=== PATIENT | male | born 1960 | race Caucasian/White ===

== ENCOUNTER 2021-02-26 13:08 | Emergency (ER) | payer OTHER, SELFPAY ==
[2021-02-26 13:29] VITALS: BP 130/67; PULSE 80; RESP 18; TEMP 36.5; O2SAT 100
--- NOTE | 2021-02-26 17:46 | ED.SKABFB ---
HPI - Skin/Abscess/Foreign Bdy General Chief complaint: Skin/Abscess/Foreign Body Stated complaint: Eye swollen shut. Not sure why Time Seen by Provider: 02/26/21 17:46 Source: patient Mode of arrival: Ambulatory Exam Initial Vital Signs Initial Vital Signs: Vital Signs Temperature 97.7 F 02/26/21 13:29 Pulse Rate 80 02/26/21 13:29 Respiratory Rate 18 02/26/21 13:29 Blood Pressure 130/67 02/26/21 13:29 Pulse Oximetry 100 02/26/21 13:29 Course Orders Ordered: Discontinued Medications Diphtheria/Tetanus/Acell Pertussis (Tet,Diph,Pertuss(Acell),Vac/Pf 0.5 Ml Syringe) 0.5 ml IM .ONCE ONE Stop: 02/26/21 13:40 Vital Signs Vital signs: Vital Signs - 8 hr 02/26/21 13:29 Temperature 97.7 F Pulse Rate 80 Respiratory Rate 18 Blood Pressure 130/67 Pulse Oximetry 100
[2021-02-26] MEDS: TET,DIPH,PERTUSS(ACELL),VAC/PF 0.5 ML SYRINGE IM (18:29)
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
--- NOTE | 2021-02-26 18:31 | PC.NURSE ---
Pt resting in chair in room 3. talkative. swelling and redness above R eyebrow. reports noticed small blister after wearing CPAP machine.
[2021-02-26 18:40] VITALS: BP 106/55; RESP 16; O2SAT 98
== END 2021-02-26 18:40 | disposition home or self-care (01) ==
PROVIDERS: Emergency Provider Emergency Medicine
DX: L03.211 Cellulitis of face (principal); B02.9 Zoster without complications; Z23 Encounter for immunization
CPT/HCPCS: 90471; 99283; 90715